=== PATIENT | male | born 1935 | race Caucasian/White ===

== ENCOUNTER 2021-09-17 16:58 | Emergency (ER) | payer BC ==
[~2021-09-17] VITALS: Ht 165.1 cm; Wt 68.0 kg
[2021-09-17 17:00] VITALS: BP_SYST 120
[2021-09-17] MEDS ORDERED: NACL 0.9% 1,000 ML IV ONE (17:45)
[2021-09-17 18:23] LABS: BASOPHILS # (AUTO) 0.1 K/uL (0.0-0.2); BASOPHILS % (AUTO) 0.9 % (0.0-2.0); EOSINOPHILS # (AUTO) 0.1 K/uL (0.0-0.4); EOSINOPHILS % (AUTO) 1.8 % (0.0-4.0); HEMOGLOBIN 12.9 g/dL (14.0-18.0); LYMPHOCYTES # (AUTO) 1.9 K/uL (1.0-5.5); LYMPHOCYTES % (AUTO) 32.8 % (20.5-51.5); MEAN CORPUSCULAR HEMOGLOBIN 33 pg (27-31); MEAN CORPUSCULAR HGB CONC 34 % (32-36); MEAN CORPUSCULAR VOLUME 98 fL (79.0-98.0); MONOCYTES # (AUTO) 0.6 K/uL (0.0-1.0); MONOCYTES % (AUTO) 10.5 % (1.7-9.3); NEUTROPHILS # (AUTO) 3.1 K/uL (1.8-7.7); PLATELET COUNT (AUTO) 124 K/uL (130-430); RED BLOOD CELL COUNT(AUTO) 3.88 MIL/uL (4.2-6.2); RED CELL DISTRIBUTION WIDTH 13.5 % (9.0-15.0); WHITE BLOOD COUNT (AUTO) 5.8 K/uL (4.8-10.8)
[2021-09-17 18:51] LABS: ANION GAP 11 (5-15); CHLORIDE 110 mmol/L (98-107); CREATININE 1.38 mg/dL (0.55-1.30); GLUCOSE 89 mg/dL (70-99); POTASSIUM 3.7 mmol/L (3.5-5.1); SODIUM SERUM 139 mmol/L (136-145); UREA NITROGEN, BLOOD 36 mg/dL (8-21)
[2021-09-17 19:00] LABS: ALANINE AMINOTRANSFERASE 23 U/L (12-78); ALBUMIN 3.8 g/dL (3.4-4.8); ASPARTATE AMINOTRANSFERASE 12 U/L (10-37); TOTAL BILIRUBIN 0.9 mg/dL (0.0-1.0)
[2021-09-17 19:25] LABS: PROTHROMBIN TIME 10.4 SECS (9.5-12.5)
[2021-09-17 20:51] VITALS: BP_SYST 119
== END 2021-09-17 20:51 | disposition home or self-care (01) ==
LOC: SED 16:58
DX: F03.90 Unspecified dementia, unspecified severity, without behavioral disturbance, psychotic disturbance, mood disturbance, and anxiety (principal); I10 Essential (primary) hypertension
CPT/HCPCS: 36415; 70450-TC; 71045; 76376; 80053; 84484; 85025; 85610-TC; 85730-TC; 93005; 99285